=== PATIENT | female | born 1965 | race Caucasian/White ===

== ENCOUNTER → 2019-11-06 15:54 | Outpatient (BNVA) | payer BC, SELFPAY | PROVIDERS: Family Provider Family Medicine; PCP Family Medicine; Visit Provider Family Medicine | DX: K21.0 Gastro-esophageal reflux disease with esophagitis (principal); R68.89 Other general symptoms and signs; Z20.828 Contact with and (suspected) exposure to other viral communicable diseases; E78.2 Mixed hyperlipidemia | CPT/HCPCS: 80061; 87804 ==

== ENCOUNTER → 2020-08-26 13:59 | Outpatient (BNVA) | payer BC, SELFPAY | PROVIDERS: Family Provider Family Medicine; PCP Family Medicine; Visit Provider Nurse Practitioner Family | DX: Z20.828 Contact with and (suspected) exposure to other viral communicable diseases (principal) | CPT/HCPCS: 87635 ==

== ENCOUNTER 2020-09-10 13:52 | Emergency (ER) | payer BC, SELFPAY ==
[2020-09-10 14:09] VITALS: BP 124/84; PULSE 75; RESP 16; TEMP 36.4; O2SAT 100; BMI 26.5
[2020-09-10 14:13] VITALS: BP 122/83; PULSE 72; RESP 16; O2SAT 99
--- NOTE | 2020-09-10 14:25 | W.ED.EXTPRO ---
HPI - Extremity Problem General: Chief complaint: Extremity Problem,Nontraumatic Stated complaint: left arm pain Time Seen by Provider: 09/10/20 14:25 History of Present Illness: HPI Narrative: Patient is a 55-year-old female comes to the ED with left arm pain and swelling. Patient says that approximately 4 days ago she was playing with her grandchild and raising and lifting them. After playing with her grandchild she felt some pain in her left elbow area. It is continued to progress and become more painful over the past couple days. She has some mild swelling in her lower arm. She says it hurts to extend elbow. She thinks she might have strained or pulled a muscle. She has been taking Tylenol for pain. She has a history of superficial venous clot but denies any DVTs. Denies chest pain, shortness of breath or hemoptysis. Associated symptoms: Deny chest pain, fever(s) or rash Review of Systems Const: Denies: fever(s), chills or fatigue Eyes: Denies: change in vision or eye discomfort ENMT: Denies: throat pain, odynophagia, nasal discharge or nasal congestion Card: Denies: chest pain, palpitations, edema, swelling of feet/ankles, dyspnea on exertion or orthopnea Resp: Denies: dyspnea, productive cough or non-productive cough GI: Denies: abdominal pain, nausea, vomiting, diarrhea, constipation or hematochezia : Denies: flank pain, dysuria or hematuria Musc: Reports: extremity pain (Left elbow) and extremity swelling (Left arm-lower arm.); Denies: neck pain or back pain Skin/Breast: Denies: rash or new lesions Neuro: Denies: headache(s), numbness in extremities or weakness in extremities PFS ED PFSH: Medical History GERD with esophagitis Mixed hyperlipidemia Surgical History H/O: hysterectomy History of appendectomy Family History Other Cancer Diabetes Social History Smoking and tobacco status: never smoked Second hand smoke exposure: Yes Alcohol intake: never Physical Exam Const: COMMON NORMALS: no acute distress, patient oriented x3 and alert GENERAL APPEARANCE: cooperative and comfortable HENMT: COMMON NORMALS: normocephalic HEAD & SCALP: normocephalic MOUTH: Normal oral and palatal mucosa present THROAT: posterior oropharynx normal and uvula midline Neck/C-Spine: COMMON NORMALS: supple GENERAL: Yes normal visual inspection Resp: COMMON NORMALS: normal respiratory effort, No retractions, No use of accessory muscles and clear to auscultation bilaterally AUSCULTATION: clear to auscultation bilaterally Cardio: COMMON NORMALS: regular rate, regular rhythm, S1 normal heart sound present, S2 normal heart sound present, No gallops present (Cardio), No clicks present (Cardio), No murmurs present (Cardio) and Peripheral pulses 2+ throughout RATE: regular rate RHYTHM: regular rhythm HEART SOUNDS: S1 normal heart sound present and S2 normal heart sound present PERIPHERAL PULSES: Peripheral pulses 2+ throughout GI: COMMON NORMALS: Normal to inspection, nondistended, normoactive bowel sounds present, Soft to palpation, non-tender and no masses PALPATION: Yes Soft to palpation : COMMON NORMALS: Yes no CVA tenderness BLADDER/KIDNEY EXAM: Yes no CVA tenderness Back/Pelvis: COMMON NORMALS: no CVA tenderness Extremity: LEFT UPPER EXTREMITY: Yes elbow joint Left elbow: Yes inspection (No visible ecchymosis, edema or erythema present.), Yes palpation (Tenderness upon palpation of the lateral aspect of elbow.), Yes ROM (Limited extension due to pain.) and Yes neurovascular exam (Neurovascular intact, 2+ radial pulse.) Neuro: COMMON NORMALS: patient oriented x3 and moves all extremities SENSORIUM/ORIENTATION: Yes alert Skin: GENERAL SKIN EXAM: dry skin Course Vital Signs: Vital signs: Vital Signs Temperature 97.5 F L 09/10/20 14:09 Pulse Rate 72 09/10/20 14:26 Respiratory Rate 14 09/10/20 14:26 Blood Pressure 122/83 09/10/20 14:26 Pulse Oximetry 99 09/10/20 14:26 MDM - Extremity (Nontraumatic) MDM Narrative: Medical decision making narrative: Patient is a 55-year-old female comes to the ED with some left elbow pain and lower extremity swelling. She believes she developed pain after playing with her grandchild couple days ago. Patient has some tenderness upon the lateral aspect of left elbow. Limited range of motion to extend elbow due to pain. No other significant exam findings. Neurovasc distally intact and radial pulse 2+. Left elbow x-ray showed no acute fractures or findings. Ultrasound venous duplex of left upper extremity showed no DVTs or clots. Patient was diagnosed with a sprain and strain of elbow and told to apply cold pack and to rest arm for the next couple days. She was sent with a prescription for ibuprofen 800 to help with pain and inflammation. Return to ED precautions given. Follow-up with PCP in 7 to 10 days. Patient understood agree with plan. Imaging Data^: US Vascular: Attestation: I personally reviewed and interpreted this imaging study as follows: Radiologist's impression: Ultrasound venous duplex of upper left extremity. Prelim report?no DVTs or blood clots seen. Xray Ortho: Attestation: I personally reviewed and interpreted this imaging study as follows: My impression: Left elbow x-ray showed no acute fractures or findings. Discharge Plan Discharge Patient Disposition: Home Clinical Impression: Sprain and strain of elbow Condition: Stable Prescriptions: New ibuprofen 800 mg tablet 800 mg PO Q8H PRN (Reason: pain) Qty: 21 RF: 0 No Action pantoprazole 40 mg tablet,delayed release (DR/EC) 40 mg PO DAILY Qty: 90 RF: 1 meloxicam [Mobic] 15 mg tablet 15 mg PO DAILY Qty: 90 RF: 1 ezetimibe [Zetia] 10 mg tablet 10 mg PO DAILY Qty: 7 RF: 0 Discharge Orders: Discharge ED (Routine); Ordered 09/10/20 Ordered By: Faizan Rice Referrals: Dasia Allen DO [Primary Care Provider] - Discharge Diet: Regular Discharge Activity: Increase activity as tolerated Patient Instructions: Elbow Sprain (ED) Activity Restrictions/Additional Instructions: Follow-up with medical provider as directed in 7 to 10 days for reevaluation. Take medications as prescribed. Rest and ice left elbow to help with symptoms. Return to the ER or your medical provider if condition worsens. Please read and understand discharge instructions. If any questions, please ask. Coding Level of Care Code ED Bacteriologist Industrial for [employer] Fwd Exam Comprehensive
[2020-09-10 14:26] VITALS: BP 122/83; PULSE 72; RESP 14; O2SAT 99
--- NOTE | 2020-09-10 14:26 | USCV_ITS ---
Travis Modi Age: 55 Gender: F : 1965 Exam Date: 09/10/2020 14:55 Ordering Phys: Faizan Rice Technologist: Amy Ybarra Exam Location: [facility] [place]_ Indication: PAIN HISTORY: Upper extremity pain. PROCEDURES: Venous duplex imaging was performed in only the left upper extremity. The following venous structures were evaluated: internal jugular vein, subclavian vein, axillary vein, and brachial veins. In addition, the basilic vein, cephalic vein, radial vein, and ulnar vein. Serial compression, augmentation maneuvers, and spectral Doppler flow evaluation were performed. FINDINGS: Normal 2-D, color Doppler and phasicity noted in the left upper extremity venous system extending from the left internal jugular vein through the main forearm. No thrombosis or occlusion noted. CONCLUSIONS No evidence of thrombus of the left upper extremity veins. Saurabh Oates MD (Electronically Signed) Final Date: 10 September 2020 18:15 S
--- NOTE | 2020-09-10 14:39 | XR_ITS ---
WS: [id number] Exam: XR elbow LT min 3V* [id number] Date/Time of Exam: 09/10/2020 2:39 PM Reason For Exam: injury with pain Findings: There are no fractures, soft tissue swelling, or calcifications. The elbow shows normal bony alignme nt. There is no irregularity of the bony architecture. XR/XR elbow LT min 3V* [id number] IMPRESSION: Negative elbow.
[2020-09-10] MEDS: ketorolac 60 mg/2 mL INJ IM (14:45)
--- NOTE | 2020-09-10 15:15 | PC.NURSE ---
Read and agree with assessment.
== END 2020-09-10 15:45 | disposition home or self-care (01) ==
PROVIDERS: Emergency Provider Physician Assistant; PCP Family Medicine
DX: S46.812A Strain of other muscles, fascia and tendons at shoulder and upper arm level, left arm, initial encounter (principal); S53.402A Unspecified sprain of left elbow, initial encounter; E78.2 Mixed hyperlipidemia; Z77.22 Contact with and (suspected) exposure to environmental tobacco smoke (acute) (chronic); X50.0XXA Overexertion from strenuous movement or load, initial encounter
CPT/HCPCS: 12345; 73080; 93971; 96372; 96375; 99281; 99283; J1885

== ENCOUNTER 2022-06-27 16:16 | Emergency (ER) | payer OTHER, SELFPAY ==
[2022-06-27 16:30] VITALS: BP 115/70; PULSE 85; RESP 16; TEMP 36.7; O2SAT 100; BMI 29.4
--- NOTE | 2022-06-27 17:33 | USR_ITS ---
PROCEDURE INFORMATION: Exam: US Duplex Right Lower Extremity Veins, Limited Exam date and time: 06/27/2022 5:54 PM Age: 57 years old Clinical indication: Pain; Leg, lower; Right; Additional info: Tenderness swelling concern for dvt TECHNIQUE: Imaging protocol: Real-time Duplex ultrasound of the Right Lower Extremity with 2-D bass scale, color Doppler flow and spectral waveform analysis with image documentation. Limited exam was focused on the right lower extremity veins. COMPARISON: CT abdomen pelvis w con* [id number] 11/17/2016 6:42 PM FINDINGS: Right deep veins: Unremarkable. The common femoral, femoral, proximal profunda femoral, popliteal, posterior tibial and peroneal veins are patent without thrombus. Normal Doppler waveforms. Normal compressibility and/or augmentation response. Right superficial veins: Unremarkable. Saphenofemoral junction is patent without thrombus. Soft tissues: Unremarkable. US/[place] [id number] IMPRESSION: No sonographic evidence of deep vein thrombosis.
--- NOTE | 2022-06-27 17:33 | W.ED.EXTPRO ---
HPI - Extremity Problem General: Chief complaint: Extremity Problem,Nontraumatic Stated complaint: Sent by clinic, swollen spot/vein on calf Time Seen by Provider: 06/27/22 17:33 History of Present Illness: 57-year-old female comes in today with concerns of tenderness and swelling to the right lower extremity. Patient notes some increase in vascular congestion and tenderness of the vessels. Patient denies any history of DVT. Patient does point out that she gets multiple little capillary hemangiomas. Review of the record patient seems to take some cholesterol medication and medication for GERD. Patient was seen today at a primary care office with and referred to the ER for concerns of DVT to the right lower extremity. Associated symptoms: Deny chest pain or fever(s) Review of Systems Const: Denies: fever(s) Card: Denies: chest pain Resp: Denies: dyspnea Musc: Reports: extremity pain PFSH ED PFSH: Medical History GERD with esophagitis Mixed hyperlipidemia Surgical History H/O: hysterectomy History of appendectomy Family History Other Cancer Diabetes Social History Smoking and tobacco status: never smoked Second hand smoke exposure: Yes Alcohol intake: never Physical Exam Const: COMMON NORMALS: alert HENMT: COMMON NORMALS: normocephalic HEAD & SCALP: normocephalic Neck/C-Spine: COMMON NORMALS: full ROM Resp: COMMON NORMALS: normal respiratory effort Cardio: COMMON NORMALS: regular rate RATE: regular rate Extremity: COMMON NORMALS: full ROM RIGHT LOWER EXTREMITY: Yes lower leg (Calf tenderness, minimal to no swelling noted) Right lower leg: Yes inspection, Yes palpation and Yes neurovascular exam Neuro: SENSORIUM/ORIENTATION: Yes alert Skin: COMMON NORMALS: turgor normal GENERAL SKIN EXAM: turgor normal Course Vital Signs: Vital signs: Vital Signs Temperature 98.0 F 06/27/22 16:30 Pulse Rate 85 06/27/22 16:30 Respiratory Rate 16 06/27/22 16:30 Blood Pressure 115/70 06/27/22 16:30 Pulse Oximetry 100 06/27/22 16:30 Oxygen Delivery Me thod 06/27/22 16:30 MDM - Extremity (Nontraumatic) Medical Decision Making Patient was referred to the ER by her PCP for concerns of a possible DVT. On exam patient has some lower leg tenderness to the right lower extremity. No obvious swelling or redness was noted. Differential diagnosis includes but not limited to strain, DVT, superficial thrombophlebitis, varicose veins. Ultrasound lower extremity noted no DVT or other significant abnormality. Reviewed exam with patient with recommendations for treatment and follow-up with primary care. Patient stated understanding and agreed to plan. Lab Data Radiology Impressions Venous Duplex 06/27/22 17:33 IMPRESSION: No sonographic evidence of deep vein thrombosis. Discharge Plan Discharge Patient Disposition: Home Clinical Impression: Pain in right lower leg Condition: Stable Prescriptions: No Action meloxicam [Mobic] 15 mg tablet 15 mg PO DAILY Qty: 90 0RF pantoprazole 40 mg tablet,delayed release (DR/EC) 40 mg PO DAILY Qty: 90 0RF ezetimibe [Zetia] 10 mg tablet 10 mg PO DAILY Qty: 90 0RF Discharge Orders: Discharge ED (Routine); Ordered 06/27/22 Ordered By: Ok Treadwell Referrals: Dasia Allen DO [Primary Care Provider] - Discharge Diet: Usual diet Discharge Activity: Increase activity as tolerated Patient Instructions: Musculoskeletal Pain (ED) Activity Restrictions/Additional Instructions: Activity as tolerated. Gentle stretching and range of motion exercises. Use acetaminophen for further pain control. If you are not taking meloxicam you can use ibuprofen but do not use them together. There was no sign of a DVT or blood clot in your leg. I recommend following up with primary care for further evaluation and treatment. Monitor site for increasing size or redness. Return to the ER for new concerns or worsening symptoms. Coding Level of Care Code ED Director Of Publications for Chg Fwd Exam Detailed
== END 2022-06-27 18:41 | disposition home or self-care (01) ==
PROVIDERS: Emergency Provider Nurse Practitioner Family; PCP Family Medicine
DX: M79.604 Pain in right leg (principal); E78.2 Mixed hyperlipidemia; Z77.22 Contact with and (suspected) exposure to environmental tobacco smoke (acute) (chronic)
CPT/HCPCS: 93971; 99284

== ENCOUNTER 2022-08-10 13:22 | Emergency (ER) | payer OTHER, SELFPAY ==
[2022-08-10 13:45] VITALS: BP 122/77; PULSE 97; RESP 14; TEMP 36.9; O2SAT 99; BMI 30.2
[2022-08-10 14:30] VITALS: BP 110/76; PULSE 88; RESP 18; O2SAT 99
--- NOTE | 2022-08-10 14:35 | XRR_ITS ---
PROCEDURE INFORMATION: Exam: XR Lumbosacral Spine Exam date and time: 08/10/2022 2:50 PM Age: 57 years old Clinical indication: Low back pain TECHNIQUE: Imaging protocol: Radiologic exam of the lumbosacral spine. Views: 2 or 3 views. COMPARISON: CR XR lumbar spine 2-3V* [id number] 07/15/2017 2:38 PM FINDINGS: Bones/joints: Normal. No acute fracture. Normal alignment. Soft tissues: Unremarkable. XR/XR lumbar spine 2-3V* [id number] IMPRESSION: No acute findings.
[2022-08-10] MEDS: ketorolac 60 mg/2 mL INJ IM (14:39)
[2022-08-10] MEDS: orphenadrine 30 mg/mL Inj 2 mL 60 MG IM (14:40)
--- NOTE | 2022-08-10 15:01 | ED_ITS ---
HPI - Back Pain/Injury General: Chief Complaint: Back Pain/Injury Stated Complaint: back is out and feet pain Time Seen by Provider: 08/10/22 13:59 History of Present Illness: Patient is a 57-year-old female comes to the ED with back pain. She denies any trauma or injury to cause back pain. She states she has been having on and off lower back pain for the past 3 months. She states that 4 days ago she started feeling worsening back pain in her lower back that radiates down into her right leg. She rates the pain currently a 6 out of 10. Denies any bladder or bowel incontinence, pelvic anesthesia or any weakness to lower extremities. Patient tried to get into primary care doctor's office and they sent her here to the ED for further evaluation and x-ray imaging of lower back. Associated symptoms: Deny abdominal pain, chills, dysuria, fatigue, fever(s), hematuria, nausea or vomiting Review of Systems Const: Denies: fever(s), chills or fatigue Eyes: Denies: change in vision or eye discomfort ENMT: Denies: throat pain, odynophagia, nasal discharge or nasal congestion Card: Denies: chest pain, palpitations, edema, swelling of feet/ankles, dyspnea on exertion or orthopnea Resp: Denies: dyspnea, productive cough or non-productive cough GI: Denies: abdominal pain, nausea, vomiting, diarrhea, constipation or hematochezia : Denies: flank pain, dysuria or hematuria Musc: Reports: back pain (Low back pain); Denies: neck pain or extremity swelling Skin/Breast: Denies: rash or new lesions Neuro: Denies: headache(s), numbness in extremities or weakness in extremities PFS ED PFSH: Medical History GERD with esophagitis Mixed hyperlipidemia Surgical History H/O: hysterectomy History of appendectomy Family History Other Cancer Diabetes Social History Smoking and tobacco status: never smoked Second hand smoke exposure: Yes Alcohol intake: never Physical Exam Const: COMMON NORMALS: no acute distress, patient oriented x3 and alert GENERAL APPEARANCE: cooperative and comfortable HENMT: COMMON NORMALS: normocephalic HEAD & SCALP: normocephalic MOUTH: Normal oral and palatal mucosa present THROAT: posterior oropharynx normal and uvula midline Neck/C-Spine: COMMON NORMALS: supple GENERAL: Yes normal visual inspection Resp: COMMON NORMALS: normal respiratory effort, No retractions, No use of accessory muscles and clear to auscultation bilaterally AUSCULTATION: clear to auscultation bilaterally Cardio: COMMON NORMALS: regular rate, regular rhythm, S1 normal heart sound present, S2 normal heart sound present, No gallops present (Cardio), No clicks present (Cardio), No murmurs present (Cardio) and Peripheral pulses 2+ throughout RATE: regular rate RHYTHM: regular rhythm HEART SOUNDS: S1 normal heart sound present and S2 normal heart sound present PERIPHERAL PULSES: Peripheral pulses 2+ throughout GI: COMMON NORMALS: Normal to inspection, nondistended, normoactive bowel soun ds present, Soft to palpation, non-tender and no masses PALPATION: Yes Soft to palpation : COMMON NORMALS: Yes no CVA tenderness BLADDER/KIDNEY EXAM: Yes no CVA tenderness Back/Pelvis: COMMON NORMALS: no CVA tenderness LUMBAR SPINE/LOWER BACK: Yes lumbar spinal tenderness Lumbar spinal tenderness location: L4 and L5 and Yes paraspinal muscle tenderness Lumbar paraspinal muscle tenderness: bilateral Bilateral lumbar paraspinal muscle tenderness: L4 and L5 Extremity: COMMON NORMALS: normal to inspection Neuro: COMMON NORMALS: patient oriented x3 SENSORIUM/ORIENTATION: Yes alert GAIT: Yes Normal gait present Skin: GENERAL SKIN EXAM: dry skin Course Vital Signs: Vital signs: Vital Signs Temperature 98.4 F 08/10/22 13:45 Pulse Rate 88 08/10/22 14:30 Respiratory Rate 18 08/10/22 14:30 Blood Pressure 110/76 08/10/22 14:30 Pulse Oximetry 99 08/10/22 14:30 Oxygen Delivery Me thod 08/10/22 14:30 MDM - Back Pain/Injury Medical Decision Making Patient is a 57-year-old female comes to the ED with back pain. She denies any trauma or injury to cause back pain. She states she has been having on and off lower back pain for the past 3 months. She states that 4 days ago she started feeling worsening back pain in her lower back that radiates down into her right leg. She rates the pain currently a 6 out of 10. Denies any bladder or bowel incontinence, pelvic anesthesia or any weakness to lower extremities. Vitals are stable. Patient has some lumbar spinal tenderness around L4 and L5 and some bilateral lumbar paraspinal muscle tenderness of L4 and L5. X-ray lumbar spine showed no acute findings. Patient was given a shot of Toradol, Norflex and steroid here in the ED. She was diagnosed with lumbar radiculopathy and was discharged home with a prescription for Celebrex, muscle relaxer and Medrol Dosepak. Told to follow-up with PCP in the next week for reevaluation. Return to ED precautions given. Patient understood and agreed with plan. Labs Radiology Impressions Lumbar Spine X-Ray 08/10/22 14:35 IMPRESSION: No acute findings. Discharge Plan Discharge Patient Disposition: Home Clinical Impression: Lumbar radiculopathy Condition: Stable Prescriptions: New Celebrex 100 mg capsule 100 mg PO BID PRN (Reason: pain) Qty: 20 0RF Medrol (Bala) 4 mg tablets,dose pack See Rx Instructions .ROUTE .COMPLEX Qty: 21 0RF Rx Instructions: orally per package directions methocarbamol 750 mg tablet 750 mg PO Q8H PRN (Reason: Back muscle spasms and pain) Qty: 20 0RF No Action meloxicam [Mobic] 15 mg tablet 15 mg PO DAILY Qty: 90 0RF pantoprazole 40 mg tablet,delayed release (DR/EC) 40 mg PO DAILY Qty: 90 0RF ezetimibe [Zetia] 10 mg tablet 10 mg PO DAILY Qty: 90 0RF Discharge Orders: Discharge ED (Routine); Ordered 08/10/22 Ordered By: Faizan Rice Referrals: Dasia Allen DO [Primary Care Provider] - Discharge Diet: Regular Discharge Activity: Increase activity as tolerated Patient Instructions: Lumbar Radiculopathy (ED) Activity Restrictions/Additional Instructions: Follow-up with medical provider as directed in the next 7 to 10 days for reeva luation. Take medications as prescribed. Return to the ER or your medical provider if condition worsens. Please read and understand discharge instructions. Thank you for choosing [facility] for your healthcare needs today. Please realize this is an emergency room and that we are providing you with a medical screening exam and this may not be complete and all inclusive of all the testing and or work up that you may need to determine your ailment or severity of your illness. It is very important that you follow up as instructed or that you return to the Emergency Department should you have concerns or if your condition changes or worsens in any way. Coding Level of Care Code ED Hammers[employer] Helper for Terence Fwd Exam Comprehensive
== END 2022-08-10 16:06 | disposition home or self-care (01) ==
PROVIDERS: Emergency Provider Physician Assistant; PCP Family Medicine
DX: M54.16 Radiculopathy, lumbar region (principal); E78.2 Mixed hyperlipidemia; Z77.22 Contact with and (suspected) exposure to environmental tobacco smoke (acute) (chronic)
CPT/HCPCS: 72100; 96372; 99284; J1885; J2360; J2930